=== PATIENT | male | born 1960 | race Caucasian/White ===

== ENCOUNTER → 2021-05-18 12:10 | Outpatient (ROUT) | payer OTHER, SELFPAY ==
[2021-05-18 12:54] LABS: COVID19 -Nasal RAPID Negative (Negative)
== END ==
PROVIDERS: Visit Provider Physician Assistant
DX: Z20.822 Contact with and (suspected) exposure to COVID-19 (principal)
CPT/HCPCS: 87635

== ENCOUNTER → 2021-05-31 13:10 | Outpatient (CLI) | payer OTHER, SELFPAY ==
[2021-05-31 17:47] LABS: COVID-19 CEPHEID PCR (VTM/NP) Negative (Negative)
== END ==
PROVIDERS: Visit Provider Physician Assistant
DX: Z20.822 Contact with and (suspected) exposure to COVID-19 (principal)
CPT/HCPCS: U0003

== ENCOUNTER 2022-03-04 21:51 | Emergency (ER) | payer OTHER, SELFPAY ==
[2022-03-04 22:04] VITALS: BP 106/74; PULSE 96; RESP 18; TEMP 37.3; O2SAT 98; BMI 29.4
--- NOTE | 2022-03-04 22:15 | PC.NURSE ---
Nasal swab performed at this time - labelled at bedside and sent to lab
--- NOTE | 2022-03-04 22:15 | ED_ITS ---
HPI - SOB/Dyspnea General Chief Complaint: Shortness of Breath/Dyspnea Stated Complaint: SOB, COVID + Time Seen by Provider: 03/04/22 21:54 Source: patient Mode of arrival: Ambulatory History of Present Illness HPI Narrative: 61-year-old male nonsmoker with history of sarcoid presents with a chief complaint of mild headache, body aches, subjective fever, sore throat and dry hacking cough since this morning. His was just diagnosed with COVID and has improved on Paxlovid. He is had shortness of breath but pulse ox is in the mid to upper 90s. He denies recent travel or chest pain. He is had no nausea, vomiting or diarrhea. He denies any change in medications. He received both [employer] vaccinations and booster and states that after discussion of risks and benefits would prefer to start Paxlovid if he is positive for COVID Related Data Home Medications Medication Instructions Recorded Confirmed carvedilol 12.5 mg tablet 12.5 mg PO BID 09/25/20 09/25/20 folic acid 1 mg tablet 1 mg PO DAILY 09/25/20 09/25/20 methotrexate (PF) 15 mg/0.3 mL 15 mg SUBCUT QWEEK 09/25/20 09/25/20 subcutaneous auto-injector omeprazole 20 mg capsule,delayed 20 mg PO DAILY 09/25/20 09/25/20 release prednisone 10 mg tablet 10 mg PO DAILY 09/25/20 09/25/20 Previous Rx's Medication Instructions Recorded azithromycin 250 mg tablet See Rx Instructions PO .COMPLEX #6 12/07/21 tabs nirmatrelvir 300 mg (150 mg See Rx Instructions PO .COMPLEX 03/04/22 x2)-ritonavir 100 mg tablet,dose #30 ea pack(EUA) (Paxlovid) Allergies Allergy/AdvReac Type Severity Reaction Status Date / Time Penicillins Allergy Intermediate Slight Verified 12/07/21 11:55 rash grass pollen AdvReac Mild Itchy, Verified 12/07/21 11:55 little bumps Review of Systems Review of Systems Narrative: GENERAL: See HPI HEENT: See HPI RESPIRATORY: See HPI CARDIOVASCULAR: Denies chest pain, palpitations, orthopnea, edema, GASTROINTESTINAL: Denies nausea, vomiting, abdominal pain, diarrhea, constipation, melena. : Denies dysuria, frequency, incontinence, hematuria, urinary retention. MUSCULOSKELETAL: denies weakness, joint pain, or bony pain SKIN: Denies rash, skin lesions, or other NEUROLOGIC: Denies weakness, headache, numbness, change in speech, confusion, seizures, incoordination. PSYCHIATRIC: No concerning psychosocial issues. 12 point review of systems is negative except for those stated above Patient History Social History Smoking Status: Never smoker Smoking Status: Never smoker Exam Narrative Exam Narrative: GENERAL: [61] year old patient appears stated age. Well-developed patient, in mild distress. HEAD: Atraumatic. Normocephalic. EYES: Pupils equal round and reactive. Extraocular motions intact. No scleral icterus. No injection or drainage. ENT: Nose without bleeding, purulent drainage. Throat without erythema, tonsillar hypertrophy or exudate. Airway patent. NECK: Trachea midline. Non tender CARDIOVASCULAR: Regular rate and rhythm without murmurs, gallops, or rubs. RESPIRATORY: Clear to auscultation. Breath sounds equal bilaterally. No wheezes, rales, or rhonchi. GASTROINTESTINAL: Abdomen soft, non-tender, nondistended. EXTREMITIES: No edema or joint tenderness. BACK: Nontender without deformity or crepitance. No flank tenderness. NEURO: AOx3. SKIN: No rash or erythema of visible areas Initial Vital Signs Initial Vital Signs: Vital Signs Temperature 99.1 F 03/04/22 22:04 Pulse Rate 96 H 03/04/22 22:04 Respiratory Rate 18 03/04/22 22:04 Blood Pressure 106/74 03/04/22 22:04 Pulse Oximetry 98 03/04/22 22:04 Oxygen Delivery Method 03/04/22 22:04 Course Orders Ordered: ED Orders 03/04/22 22:16 COVID19 -Nasal RAPID/Pre-Proc Stat 03/04/22 22:34 Creatinine & eGFR Stat Vital Signs Vital signs: Vital Signs - 8 hr 03/04/22 22:04 Temperature 99.1 F Pulse Rate 96 H Respiratory Rate 18 Blood Pressure 106/74 Pulse Oximetry 98 Oxygen Delivery Method Room Air MDM - SOB/Dyspnea Lab Data Result diagrams: 03/04/22 22:34 Labs: Lab Results 03/04/22 03/04/22 Range/Units 22:16 22:34 Creatinine 1.14 (0.66-1.25) mg/dL Estimated GFR > 60 (>60) mL/min SARS-CoV-2 (PCR) Positive H (Negative) Discharge Plan Departure Patient Disposition: Home Clinical Impression: COVID-19 Instructions: COVID-19 Activity Restrictions/Additional Instructions: Prescription for Paxlovid sent to your pharmacy ([facility]) *You have been diagnosed with [ COVID-19] *What to do: ?* per recommendations from the CDC and the [facility] Department of Health ?* stay home except to get medical care. ?Restrict activities outside your home, except for getting medical care. ?Do not go to work, school, or public areas. ?Avoid using public transportation, ride sharing, or taxis. ?* separate yourself from other people in your home. ?* call ahead before visiting your doctor ?* Wear a facemask ?* Cover your coughs and sneezes ?* Clean your hands often ?* Avoid sharing household items ?* Clean all high-touch services every day ?* Monitor your symptoms and seek prompt medical attention if your illness is worsening, particularly with difficulty in breathing. You may discontinue your isolation when: ?1. You have been fever-free for at least 24 hours without the use of fever reducing medication, AND ?2. Your symptoms are getting better, AND ?3. At least 5 days have passed since symptoms first appeared ?4. If you have fever, continue to stay home until fever resolves Individuals with laboratory confirmed COVID-19 who have not had any symptoms may discontinue home isolation when at least 5 days have passed since the date of their first COVID-19 diagnostic test and have had no subsequent illness You should notifiy any friends and family that have been in close contact *If up to date on COVID Vaccines, then they do not need to quarantine unless symptoms develop. Get tested on day 5 (or sooner if symptoms develop). Take precautions and watch for symptoms until day 10 *If NOT up to date on COVID Vaccines, then CDC recommends quarantine for at least 5 full days. Wear a well fitted mask at home if you must be around others. If they ?develop symptoms they should get tested. If they remain asymptomatic they should get tested on day 5. They should take precautions and monitor for symptoms until day 10. Prescriptions: New Paxlovid (EUA) 300 mg (150 mg x 2)-100 mg tablets,dose pack See Rx Instructions .ROUTE .COMPLEX Qty: 30 0RF Rx Instructions: take TWO 150 mg tablets of nirmatrelvir with ONE 100 mg tablet of ritonavir twice daily for 5 days No Action methotrexate (PF) 15 mg/0.3 mL auto-injector 15 mg SUBCUT QWEEK prednisone 10 mg tablet 10 mg PO DAILY carvedilol 12.5 mg tablet 12.5 mg PO BID Rx Instructions: must administer with a meal/food folic acid 1 mg tablet 1 mg PO DAILY omeprazole 20 mg capsule,delayed release(DR/EC) 20 mg PO DAILY azithromycin 250 mg tablet See Rx Instructions PO .COMPLEX Qty: 6 0RF Rx Instructions: For 250 mg dose pack: take 500 mg today (day 1), then 250 mg for 4 days (days 2-5) PO Referrals: Miscellaneous,Doctor, MD [Primary Care Provider] - Visit Report Forms: Patient Portal/API
--- NOTE | 2022-03-04 22:22 | PC.NURSE ---
states that his was diagnosed with COVID yesterday - states that his home test was negative - having cough and congestion and s/sx of COVID- airway patent - PWD with respirations equal and unlabored bilaterally
[2022-03-04 22:41] LABS: COVID19 -Nasal RAPID POSITIVE (Negative)
[2022-03-04 23:03] LABS: Estimated Glomerular Filt Rate > 60 mL/min (>60)
== END 2022-03-04 23:32 | disposition home or self-care (01) ==
PROVIDERS: Emergency Provider Emergency Medicine
DX: U07.1 COVID-19 (principal)
CPT/HCPCS: 82565; 87635; 99281; 99283; C9803

== ENCOUNTER → 2022-04-18 09:34 | Outpatient (CLI) | payer OTHER, SELFPAY ==
[2022-04-18 10:17] LABS: Add Manual Diff / Slide Review NO; Basophils Absolute Auto 0 /uL (0-100); Basophils Percent Auto 1.1 % (0-2); Eosinophils Absolute Auto 100 /uL (0-450); Eosinophils Percent Auto 2.4 % (2-4); Hematocrit 40.6 % (41-53); Lymphocytes Absolute Auto 1100 /uL (1100-4500); Lymphocytes Percent Auto 25.9 % (25-40); Mean Corpuscular HGB Conc 34.5 % (30-36); Mean Corpuscular Hemoglobin 32.7 PG (26-34); Mean Corpuscular Volume 94.7 fL (80-100); Monocytes Absolute Auto 700 /uL (0-900); Monocytes Percent Auto 15.9 % (3-14); Neutrophils Absolute Auto 2300 /uL (1500-7000); Neutrophils Percent Auto 54.7 % (50-75); Platelet Count 232 X10^3/uL (150-400); Red Blood Cell Count 4.29 X10^6/uL (4.5-5.9); Red Cell Distribution Width 13.4 % (11.6-14.8); White Blood Cell Count 4.2 X10^3/uL (4.5-11.0)
[2022-04-18 12:02] LABS: Albumin 4.1 g/dL (3.5-5.0); Chloride 102 mmol/L (98-107); HEMOLYSIS < 15 (0-50); Potassium 4.1 mmol/L (3.4-5.1); Sodium 140 mmol/L (137-145)
[2022-04-18 12:15] LABS: Vitamin D 25 Hydroxy (D3) 37.7 ng/mL (30.0-100.0)
[2022-04-18 13:01] LABS: Vitamin B12 530 pg/mL (239-931)
[2022-04-18 17:34] LABS: Alanine Aminotransferase 34 IU/L (<50); Albumin Globulin Ratio 1.4 (1.0-2.8); Alkaline Phosphatase 80 U/L (38-126); Aspartate Aminotransferase 31 IU/L (17-59); BUN Creatinine Ratio 11.8 (6-22); Bilirubin Total 0.7 mg/dL (0.2-1.3); Blood Urea Nitrogen 13 mg/dL (9-20); Calcium 9.2 mg/dL (8.4-10.2); Carbon Dioxide 26 mmol/L (22-32); Cholesterol 282 mg/dL (140-199); Estimated Glomerular Filt Rate > 60 mL/min (>60); Glucose 95 mg/dL (80-110); HDL Cholesterol 43 mg/dL (40-60); LDL Cholesterol Calculated 209 mg/dL (<100); Total Protein 7.1 g/dL (6.3-8.2); Triglycerides 152 mg/dL (35-150)
[2022-04-19 15:04] LABS: Folate 12.2 ng/mL (2.76-20.0)
== END ==
PROVIDERS: PCP Family Medicine; Referring Provider Family Medicine; Visit Provider Family Medicine
DX: D86.85 Sarcoid myocarditis (principal); Z51.81 Encounter for therapeutic drug level monitoring; E56.9 Vitamin deficiency, unspecified; Z79.899 Other long term (current) drug therapy
CPT/HCPCS: 36415; 80053; 80061; 82306; 82607; 82746; 85025

== ENCOUNTER → 2022-07-22 10:08 | Outpatient (CLI) | payer OTHER, SELFPAY ==
[2022-07-22 10:50] LABS: Alanine Aminotransferase 38 IU/L (<50); Albumin 4.1 g/dL (3.5-5.0); Albumin Globulin Ratio 1.4 (1.0-2.8); Alkaline Phosphatase 71 U/L (38-126); Aspartate Aminotransferase 30 IU/L (17-59); BUN Creatinine Ratio 12.2 (6-22); Bilirubin Total 0.9 mg/dL (0.2-1.3); Blood Urea Nitrogen 14 mg/dL (9-20); Calcium 9.1 mg/dL (8.4-10.2); Carbon Dioxide 32 mmol/L (22-32); Chloride 102 mmol/L (98-107); Cholesterol 276 mg/dL (140-199); Estimated Glomerular Filt Rate > 60 mL/min (>60); Globulin 2.9 g/dL (1.7-4.1); Glucose 93 mg/dL (80-110); HDL Cholesterol 45 mg/dL (40-60); HEMOLYSIS < 15 (0-50); LDL Cholesterol Calculated 203 mg/dL (<100); Potassium 4.4 mmol/L (3.4-5.1); Sodium 138 mmol/L (137-145); Triglycerides 139 mg/dL (35-150)
[2022-07-22 11:16] LABS: Prostate Specific Antigen 0.495 ng/mL (0.10-4.00)
[2022-07-22 11:35] LABS: TSH w/ Reflex to FT4 1.79 uIU/mL (0.47-4.68)
[2022-07-22 11:51] LABS: Folate 11.2 ng/mL (2.76-20.0); Vitamin B12 447 pg/mL (239-931)
== END ==
PROVIDERS: PCP Family Medicine; Referring Provider Family Medicine; Visit Provider Family Medicine
DX: D86.85 Sarcoid myocarditis (principal); E78.2 Mixed hyperlipidemia; Z79.899 Other long term (current) drug therapy; Z12.5 Encounter for screening for malignant neoplasm of prostate; Z13.29 Encounter for screening for other suspected endocrine disorder
CPT/HCPCS: 36415; 80053; 80061; 82607; 82746; 84153; 84443

== ENCOUNTER → 2022-12-06 11:51 | Outpatient (CLI) | payer OTHER, SELFPAY ==
[2022-12-06 12:55] LABS: Add Manual Diff / Slide Review NO; Basophils Absolute Auto 100 /uL (0-100); Basophils Percent Auto 1.2 % (0-2); Eosinophils Absolute Auto 100 /uL (0-450); Eosinophils Percent Auto 2.6 % (2-4); Hematocrit 43.5 % (41-53); Hemoglobin 14.9 g/dL (13.5-17.5); Lymphocytes Absolute Auto 1200 /uL (1100-4500); Lymphocytes Percent Auto 24.7 % (25-40); Mean Corpuscular HGB Conc 34.4 % (30-36); Mean Corpuscular Hemoglobin 32.7 PG (26-34); Mean Corpuscular Volume 95.1 fL (80-100); Monocytes Absolute Auto 700 /uL (0-900); Monocytes Percent Auto 15.5 % (3-14); Neutrophils Absolute Auto 2600 /uL (1500-7000); Platelet Count 238 X10^3/uL (150-400); Red Blood Cell Count 4.57 X10^6/uL (4.5-5.9); Red Cell Distribution Width 13.2 % (11.6-14.8); White Blood Cell Count 4.7 X10^3/uL (4.5-11.0)
[2022-12-06 13:23] LABS: Alanine Aminotransferase 42 IU/L (<50); Albumin 4.4 g/dL (3.5-5.0); Albumin Globulin Ratio 1.5 (1.0-2.8); Alkaline Phosphatase 74 U/L (38-126); Aspartate Aminotransferase 35 IU/L (17-59); BUN Creatinine Ratio 12.9 (6-22); Bilirubin Total 0.9 mg/dL (0.2-1.3); Blood Urea Nitrogen 15 mg/dL (9-20); Calcium 9.3 mg/dL (8.4-10.2); Carbon Dioxide 32 mmol/L (22-32); Chloride 100 mmol/L (98-107); Estimated Glomerular Filt Rate > 60 mL/min (>60); Glucose 104 mg/dL (80-110); HEMOLYSIS < 15 (0-50); Potassium 5.2 mmol/L (3.4-5.1); Sodium 139 mmol/L (137-145); Total Protein 7.4 g/dL (6.3-8.2)
== END ==
PROVIDERS: PCP Family Medicine; Referring Provider Internal Medicine Pulmonary Disease; Visit Provider Internal Medicine Pulmonary Disease
DX: Z79.899 Other long term (current) drug therapy (principal); J84.9 Interstitial pulmonary disease, unspecified
CPT/HCPCS: 36415; 80053; 85025

== ENCOUNTER → 2023-05-19 13:10 | Outpatient (CLI) | payer OTHER, SELFPAY ==
[2023-05-19 14:45] LABS: Add Manual Diff / Slide Review NO; Basophils Absolute Auto 100 /uL (0-100); Basophils Percent Auto 1.1 % (0-2); Eosinophils Absolute Auto 100 /uL (0-450); Eosinophils Percent Auto 1.8 % (2-4); Hematocrit 40.3 % (41-53); Lymphocytes Absolute Auto 1300 /uL (1100-4500); Lymphocytes Percent Auto 21.8 % (25-40); Mean Corpuscular HGB Conc 34.8 % (30-36); Mean Corpuscular Volume 94.7 fL (80-100); Monocytes Absolute Auto 700 /uL (0-900); Monocytes Percent Auto 12.7 % (3-14); Neutrophils Absolute Auto 3600 /uL (1500-7000); Neutrophils Percent Auto 62.6 % (50-75); Platelet Count 259 X10^3/uL (150-400); Red Blood Cell Count 4.26 X10^6/uL (4.5-5.9); Red Cell Distribution Width 12.8 % (11.6-14.8); White Blood Cell Count 5.8 X10^3/uL (4.5-11.0)
[2023-05-19 15:15] LABS: Cholesterol 138 mg/dL (140-199); HDL Cholesterol 47 mg/dL (40-60); LDL Cholesterol Calculated 71 mg/dL (<100); Triglycerides 98 mg/dL (35-150)
== END ==
PROVIDERS: PCP Nurse Practitioner Family; Referring Provider Internal Medicine Cardiovascular Disease; Visit Provider Internal Medicine Cardiovascular Disease
DX: E78.5 Hyperlipidemia, unspecified (principal); D86.85 Sarcoid myocarditis; Z79.899 Other long term (current) drug therapy; J84.9 Interstitial pulmonary disease, unspecified
CPT/HCPCS: 36415; 80061; 85025